=== PATIENT | female | born 2000 | race Two or more races ===

== ENCOUNTER 2022-05-13 13:29 | Outpatient (CLI) | payer OTHER | END 2022-05-13 13:54 | disposition home or self-care (01) | LOC: PRENATAL 13:29 | PROVIDERS: ATTEND Obstetrics & Gynecology Maternal & Fetal Medicine | DX: Z76.1 Encounter for health supervision and care of foundling (principal) ==

== ENCOUNTER 2022-06-18 10:51 | Outpatient (CLI) | payer OTHER | END 2022-06-18 12:27 | disposition home or self-care (01) | LOC: PRENATAL 10:51 | PROVIDERS: ATTEND Obstetrics & Gynecology Maternal & Fetal Medicine | DX: O35.9XX0 Maternal care for (suspected) fetal abnormality and damage, unspecified, not applicable or unspecified (principal); O35.3XX0 Maternal care for (suspected) damage to fetus from viral disease in mother, not applicable or unspecified; Z3A.20 20 weeks gestation of pregnancy ==

== ENCOUNTER 2022-09-10 14:36 | Outpatient (CLI) | payer OTHER | END 2022-09-10 16:03 | disposition home or self-care (01) | LOC: PRENATAL 14:36 | PROVIDERS: ATTEND Obstetrics & Gynecology Maternal & Fetal Medicine | DX: O26.849 Uterine size-date discrepancy, unspecified trimester (principal); O36.8199 Decreased fetal movements, unspecified trimester, other fetus; Z3A.32 32 weeks gestation of pregnancy ==

== ENCOUNTER 2022-09-17 19:33 | Emergency (ER) | payer OTHER ==
[~2022-09-17] VITALS: Ht 154.9 cm; Wt 60.3 kg
[2022-09-17] MEDS ORDERED: PROVIDA OB CAP1 EACH (19:53)
== END 2022-09-17 23:47 | disposition home or self-care (01) ==
LOC: ER 19:33
DX: O26.893 Other specified pregnancy related conditions, third trimester (principal); Z3A.33 33 weeks gestation of pregnancy; R50.9 Fever, unspecified; Z20.822 Contact with and (suspected) exposure to COVID-19